=== PATIENT | female | born 1965 | race Caucasian/White ===

== ENCOUNTER 2020-02-19 21:38 | Inpatient (IN) | payer MEDICARE, MEDICAID, SELFPAY ==
[2020-02-19 20:56] VITALS: BMI 20.2; BMI 20.3
--- NOTE | 2020-02-19 20:56 | PCS.PANDOC ---
PANDEMIC DOCUMENTATION INITIATED: Date: 02/19/20 Time: 20:51
[2020-02-19 21:00] VITALS: BP 122/65; PULSE 74; RESP 18; TEMP 37.2; O2SAT 97
[2020-02-19 21:17] VITALS: PULSE 79
--- NOTE | 2020-02-19 21:44 | HP.PCM_ITS ---
Problem List (1) Pulmonary embolism Status: Acute (2) COPD (chronic obstructive pulmonary disease) Status: Acute History of Present Illness Date of Admission: 02/19/20 Chief Complaint: chest pain The patient is a 54 year old F 54-year-old female with a significant past medical history of HIV (undetectable viral load, CD count normally low); DVT, chronic COPD, depression, anxiety who presented to [facility] ED with chest pain that started a day before presentation. The chest pain is located on her left chest. The chest pain is persistent. She described chest pain as sharp and achy. She rated chest pain as of intensity 8 out of 10. The chest pain increased with taking a deep breath. She was given morphine at the outside hospital ED that did not really help her. She denies any ameliorating factors to the chest pain. Associated for symptoms is dyspnea, fatigue, nausea, and vomiting. She reports left leg pain for about 4 days.Reportedly had back surgery in December 2019. Patient's mother had pulmonary embolism. Patient was transferred from [facility] ED to our hospital. Past Medical History Medical History: Medical History (Last Reviewed 02/19/20 @ 23:[address] Deacon Hernández MD) HIV (human immunodeficiency virus infection) B20 Allergies cefdinir Adverse Reaction (Severe, Verified 02/19/20 21:13) Hives codeine Adverse Reaction (Severe, Verified 02/19/20 21:13) Hives doxycycline Adverse Reaction (Severe, Verified 02/19/20 21:13) Hives ketorolac [From Toradol] Adverse Reaction (Severe, Verified 02/19/20 21:13) Hives Home Medications: Ambulatory Orders Medication Instructions Recorded Abacavir/Dolutegravir/Lamivudi 1 ea PO DAILY 02/19/20 [Triumeq Tablet] Lamotrigine [Lamictal] 75 mg PO BID 02/19/20 Oxycodone HCl/Acetaminophen 1 tab PO PRN PRN 02/19/20 [Percocet 10-325 mg Tablet] Quetiapine Fumarate [Seroquel] 100 mg PO DAILY 02/19/20 Ropinirole HCl [Requip] 1 mg PO BID 02/19/20 Sertraline HCl [Zoloft] 200 mg PO DAILY 02/19/20 traZODone [Desyrel] 150 mg PO QHS 02/19/20 Surgical History: hysterectomy, - - ; back surgery for herniated disc; eight surgeries on right shoulder; bilateral hip replacements; left knee replacement; lymph node dissection on groin Smoking Status: Former smoker - *Family History Maternal History Items: Cancer - Uterine cancer, Dementia, - - Pulmonary embolism Paternal History Items: Cancer - Bladder cancer, - - His father had bladder cancer but he from COVID-19 virus. Review of Systems Constitutional: Denies: Chills, Fever, Weight Change HEENT: Denies: Head Aches, Sinus Congestion, Sinus Drainage Cardiovascular: Reports: Chest Pain. Denies: Palpitations Respiratory: Reports: Cough, Pleuritic Pain, Shortness of Breath, Sputum production. Denies: Shortness of breath at rest Gastrointestinal: Reports: Nausea, Vomiting. Denies: Abdominal Pain Genitourinary: Denies: Dysuria Musculoskeletal: Denies: Joint Pain, Joint Tenderness Skin: Denies: Rash, Wounds Neurological: Denies: Numbness, Tingling, Focal weakness Psychiatric: Denies: Anxiety, Depression, Homicidal Ideations, Suicidal Ideations Hematologic/ Lymphatic: Denies: Easy Bruising, Easy Bleeding VTE Information - Inpt Only VTE Present on Admission: Yes VTE Mechan Device Prophylaxis: None VTE Pharm Prophylaxis ordered?: No Patient Problems: Active and Suspected Problems (Last Updated 02/19/20 @ 22:[address] Deacon Hernández MD) Pulmonary embolism (Acute) COPD (chronic obstructive pulmonary disease) (Acute) - Physical Exam Vitals/I&O's: Vital Signs Temp Pulse Resp BP Pulse Ox 99.0 F 79 18 122/65 H 97 02/19/20 21:00 02/19/20 21:17 02/19/20 21:00 02/19/20 21:00 02/19/20 21:00 Oxygen Delivery Method Room Air General: Alert, Oriented x3, Cooperative HEENT: Atraumatic, PERRLA, EOMI, Normocephalic Neck: Supple, No JVD, Negative Carotid Bruits Lungs: Wheezes Cardiovascular: Regular rate, Normal S1, Normal S2, No murmurs Abdomen: Bowel Sounds Present, Soft, Non Tender Extremities: No edema, Capillary Refill Less than 3 Seconds Skin: No rashes, No breakdown Musculoskeletal: No Tenderness to Palpation of Joints or Extremities Neurological: Cranial nerves II-XII grossly intact Psych/Mental Status: Normal Affect, Appropriate Assessment/Plan All Active Problems (Last Updated 02/19/20 @ 22:[address] Deacon Hernández MD) Pulmonary embolism (Acute) COPD (chronic obstructive pulmonary disease) (Acute) The patient is a 54 year old F 54-year-old female with a significant past medical history of HIV (undetectable viral load, CD count normally low); DVT, chronic COPD, depression, anxiety who presented to [facility] ED with chest pain; shortness of breath; productive cough;dyspnea, fatigue, nausea, and vomiting and found to have a PE on CTPA. Acute pulmonary embolism CTPA at outside hospital with nonspecific reticular changes, 1 cm filling defect distal main pulmonary artery, other events clot suspected, no distal PE noted. Patient for history of DVT in left leg and DVT in left after PICC insertion. PT/INR 10.1/1.0 at outside hospital. PTT 24.5 at outside hospital. Negative Covid PCR and antigen at outside hospital.. Heparin drip without bolus at outside hospital. Heparin drip continued. Escalate home as needed oxycodone. Antiemetics and bowel protocol in place. Echocardiogram ordered. COPD exacerbation With diffuse wheezing and shortness of breath. Scheduled DuoNeb Albuterol as needed Solu-Medrol 25 mg x 1 and then daily. Oxygen as needed Monitor BMP and CBC HIV On Triumeq; continued Depression/anxiety/mood disorder Lamictal; Seroquel; Zoloft and trazodone continued Restless legs Requip continued DVT prophylaxis: Not indicated since patient is on heparin drip for acute PE. Inpatient E&M: 42887 Init Hosp L3
--- NOTE | 2020-02-19 21:57 | ECHOD_ITS ---
Reason For Study: Emboli, PE Procedure This was a 2D Doppler, Color Flow transthoracic echocardiogram. The exam was of adequate technical quality. Exam performed portable in patient room. Left Ventricle Normal LV size. Left ventricular systolic function is normal. The estimated ejection fraction is 70 %. Transmitral doppler flow suggestive of impaired relaxation of left ventricle. No regional wall motion abnormalities noted. Right Ventricle Normal RV size. Normal systolic function. Atria Normal left atrium. Normal right atrium. Prominent eustachian valve. Normal atrial septum. Mitral Valve There is no mitral annular calcification. Normal mitral valve. Trivial mitral valve insufficiency. Tricuspid Valve Normal tricuspid valve. Trivial tricuspid valve insufficiency. Aortic Valve Trisinus/trileaflet aortic valve. Mild focal aortic valve thickening. Pulmonic Valve The pulmonic valve is not well visualized. Great Vessels Normal sized aortic root. Pericardium/Pleural No pericardial effusion. MMode/2D Measurements & Calculations LVIDd: 5.4 cm IVSd: 1.2 cm Ao root diam: 2.5 cm LVIDs: 2.5 cm LVPWd: 0.85 cm RVDd: 3.9 cm FS: 54.2 % LAV(MOD-bp): 38.3 ml LVAd ap4: 22.0 cm2 SV(MOD-sp4): 41.7 ml LAV(MOD-bp) Indexed: 24.0 ml/m2 EDV(MOD-sp4): 56.8 ml LAV(MOD-sp2): 41.9 ml EDV(sp4-el): 58.6 ml LAV(MOD-sp4): 33.1 ml LVAs ap4: 10.0 cm2 ESV(MOD-sp4): 15.1 ml ESV(sp4-el): 15.5 ml EF(MOD-sp4): 73.4 % EF(sp4-el): 73.6 % SV(sp4-el): 43.2 ml LA A4 area: 13.7 cm2 LA dimension(2D): 3.3 cm RA A4 area: 12.9 cm2 Doppler Measurements & Calculations MV E max konrad: 108.7 cm/sec Lat Peak E' Konrad: 7.5 cm/sec Med Peak E' Konrad: 8.7 cm/sec MV A max konrad: 117.8 cm/sec E/E' lat: 14.4 E/E' med: 12.5 MV E/A: 0.92 Ao V2 max: 188.3 cm/sec LV V1 max: 152.7 cm/sec PA V2 max: 126.8 cm/sec Ao max P.2 mmHg LV V1 max P.3 mmHg Ao V2 mean: 127.2 cm/sec Ao mean P.2 mmHg Ao V2 VTI: 38.9 cm Interpretation Summary Left ventricular systolic function is normal. The estimated ejection fraction is 70 %. Prominent eustachian valve. Trivial mitral valve insufficiency. Trivial tricuspid valve insufficiency. Mild focal aortic valve thickening. Ordering Physician: Deacon Hernández Performed By: Charity Asher, NARAYAN, RVT
[2020-02-19] MEDS: oxyCODONE 5 MG Tablet 10 MG PO (22:24)
[2020-02-19 22:51] VITALS: O2SAT 96
[2020-02-19] MEDS: HEPARIN/D5w 25,000 UNITS 25,000 UNITS/250 ML IV.SOLN. 15.3 UNITS IV (22:57)
[2020-02-19] MEDS: traZODone 100 MG Tablet 150 MG PO (23:00)
[2020-02-19] MEDS: guaiFENesin 1,200 MG Tablet 1200 MG PO (23:01)
[2020-02-19] MEDS: Pramipexole Di-HCl 0.5 MG Tablet PO (23:01)
[2020-02-19] MEDS: QUEtiapine 100 MG Tablet PO (23:03)
[2020-02-19] MEDS: MethylPREDNISolone 125 MG/2 ML Vial IV (23:07)
[2020-02-19 23:17] VITALS: PULSE 87
[2020-02-19] MEDS: Heparin Injection (Vial) 5,000 UNIT/ML VIAL IV (23:25)
[2020-02-20] VITALS (10 sets, daily range): BP systolic 106–118; BP diastolic 60–72; PULSE 60–95; RESP 16–20; TEMP 36.6–37.3; O2SAT 92–99
[2020-02-20] MEDS: oxyCODONE 5 MG Tablet 10 MG PO ×4 (05:21→19:53)
[2020-02-20] MEDS: 0.9% Saline Lock 10 ML Syringe IV ×2 (05:22→14:14)
[2020-02-20 05:30] LABS: Absolute Lymphocyte Count 0.88 X10^3/uL (0.83-4.51); Absolute Neutrophil Count 4.9 X10^3/uL (2.0-7.7); Hemoglobin 11.1 g/dL (12.0-15.0); Lymphocyte # 0.88 X10^3/ul (4.0); Mean Corp Hgb Conc 31.7 g/dL (32-36); Mean Corpuscular Hgb 28.2 pg (27.0-32.0); Mean Corpuscular Volume 89.1 fL (81-99); Monocyte# 0.08 X10^3/uL; Monocyte% 1.4 % (0-10); NRBC Flagged by Analyzer 0 % (0-5); Neutrophil # 4.87 X10^3/uL (2.7-7.7); Neutrophil % 83.1 % (47-70); Platelet Count 274 K/mm3 (150-450); RBC Distribution Width CV 15.9 % (11.6-14.6); RBC Distribution Width SD 52.7 fl (35.1-43.9); Red Blood Count 3.93 M/mm3 (4.2-5.4); White Blood Count 5.9 K/mm3 (4.4-11.0)
[2020-02-20 05:49] LABS: Anion Gap 6 (5-15); BUN 15 mg/dL (7-18); BUN/Creat Ratio 18.7 RATIO (10-20); Calcium,Total 8.9 mg/dL (8.5-10.1); Chloride 108 mmol/L (98-107); EST Glomerular Filtration Rate 78 mL/min (>60); Est Glom Filt Rate - Afr Amer 95 mL/min (>60); Estimated Creatinine Clearance 68.43 ml/min; Glucose 203 mg/dL (74-106); Sodium Level 139 mmol/L (136-145)
[2020-02-20 06:03] LABS: Partial Thromboplast Time > 250.0 Seconds (24.1-36.2)
[2020-02-20] MEDS: Ipratropium/Albuterol Sulfate 3 ML AMPUL.NEB INHALATION ×2 (07:27→15:16)
[2020-02-20] MEDS: Pramipexole Di-HCl 0.5 MG Tablet PO ×2 (09:43→21:39)
[2020-02-20] MEDS: lamoTRIgine 25 MG Tablet 75 MG PO ×2 (09:43→21:39)
[2020-02-20] MEDS: Sertraline 100 MG Tablet 200 MG PO (09:43)
[2020-02-20] MEDS: guaiFENesin 1,200 MG Tablet 1200 MG PO ×2 (09:43→21:39)
[2020-02-20] MEDS: ABACAVIR PO (09:44)
[2020-02-20] MEDS: LAMIVUDI PO (09:44)
[2020-02-20] MEDS: DOLUTEGRAVIR PO (09:44)
--- NOTE | 2020-02-20 11:04 | CASEMGMT ---
MAE WINTERS assessment: Face to Face with patient for initial transition planning/care coordination assessment. MAE WINTERS introduced self and role at [facility], pt voices understanding and consents to assessment at this time. Pt is sitting up in bed in no distress at this time. Pt is on room air at this time. Pt is A/Ox4 at this time and answers all questions appropriately at this time. Care providers, pharmacy, and demographics verified/updated at this time. Presentation: Pt is a direct admit from [place] ED for PE Admitting dx: PE PCP: Sanaz Monreal Specialists: [facility]; santino Atkinson in [place]; Tammy, psych; Camille, NEERAJ Preferred Pharmacy: [facility] [place] Insurance: [facility] Prescription Benefit: [facility] Living Will/HPOA: Pt states has LW/HPOA and is aware that they are not on file at [facility] at this time. Pt states her daughter, Cecilia Antony, is HPOA. LNOK: Cecilia Antony, daughter/HPOA Living Arrangements: Pt states lives alone in 1 story apartment and states no concerns at home at this time. Pt states is independent with ADL's. Transportation: Pt states normally rides the bus and states no transportation concerns at this time. DME/HHC: Pt states has a walker that she uses occasionally and states no need for any further DME. Pt states no hx of HHC but has been to [facility] in the past. Pt states no concerns with going home at time of discharge. Pt states is on disability. Pt states quit smoking cigarettes about 3-4months ago and states does not drink ETOH. Pt states no further concerns/needs at this time. CM to follow for anti-coagulant, home oxygen need and any further discharge planning/needs. Advised pt to ask for CM if any further questions/concerns/needs arise, voices understanding. Pt Goal: Home Plan: [place] [facility] [place]
--- NOTE | 2020-02-20 14:46 | DCINST_ITS ---
- Discharge Diagnoses Current Active Problems: Current Active and Chronic Problems (Last Reviewed 02/19/20 @ 23:[address] Deacon Hernández MD) Pulmonary embolism (Acute) COPD (chronic obstructive pulmonary disease) (Acute) You will use the following diet at home:: No restrictions Your food should be the consistency of: Regular Your liquids should be the consistency of: Regular/Thin Discharge Activity: Return to Normal Activity Weight Bearing Status: Full weight bearing Additional Instructions: Resume your inhalers when you return home Allergies/Adverse Reactions: Allergies cefdinir Adverse Reaction (Severe, Verified 02/19/20 21:13) Hives codeine Adverse Reaction (Severe, Verified 02/19/20 21:13) Hives doxycycline Adverse Reaction (Severe, Verified 02/19/20 21:13) Hives ketorolac [From Toradol] Adverse Reaction (Severe, Verified 02/19/20 21:13) Hives Medications to take at Discharge Abacavir/Dolutegravir/Lamivudi [Triumeq 600-50-300 mg Tablet] 1 ea PO DAILY 02/19/20 Lamotrigine [Lamictal] 75 mg PO BID 02/19/20 Oxycodone HCl/Acetaminophen [Percocet 10-325 mg Tablet] 1 tab PO PRN PRN 02/19/20 Quetiapine Fumarate [Seroquel] 100 mg PO DAILY 02/19/20 Ropinirole HCl [Requip] 1 mg PO BID 02/19/20 Sertraline HCl [Zoloft] 200 mg PO DAILY 02/19/20 traZODone [Desyrel] 150 mg PO QHS 02/19/20 Apixaban [Eliquis] 5 mg PO UD #1 tab.ds.pk 02/20/20 The following prescriptions were given: Apixaban [Eliquis] 5 mg PO UD #1 tab.ds.pk Primary Care Physician: MARTINA OSMAN [Other] Please follow up with your Primary Care Physician in: in 1-2 weeks Test Results: Test results from this visit will be discussed in further detail at your follow- up appointment, if applicable.
[2020-02-20] MEDS: APIXABAN 5 MG TABLET 10 MG PO (16:17)
[2020-02-20] MEDS: QUEtiapine 100 MG Tablet PO (21:39)
[2020-02-20] MEDS: traZODone 100 MG Tablet 150 MG PO (21:40)
--- NOTE | 2020-02-23 17:59 | DS.PCM_ITS ---
Discharge Date and Diagnosis - Problem List Patient Problems: Active and Suspected Problems (Last Reviewed 02/19/20 @ 23:[address] Deacon Hernández MD) Pulmonary embolism (Acute) COPD (chronic obstructive pulmonary disease) (Acute) Date of Admission: 02/19/20 Date of Discharge: 02/20/20 - Primary Discharge Diagnosis Acute Problems: Active Problems (Last Reviewed 02/19/20 @ 23:[address] Deacon Hernández MD) #1 acute pulmonary embolism (Acute) #2 chronic obstructive pulmonary disease-no exacerbation #3 chronic depression #4 HIV positivity-chronic Hospital Course and Treatment Operations: None Procedures: 2-D Echocardiogram Summary of Care Provided: The patient is a 54 year old F was admitted directly to PCU at [facility] as a transfer from an outside hospital where she had gone to the emergency room for evaluation of chest discomfort. Work-up at that hospital included a CTA scan which showed evidence of pulmonary emboli, due to bed availability, patient was transferred to our hospital for further treatment, she was admitted on a heparin drip and initially when she was admitted she was felt to have had an exacerbation of COPD-this examiner did not feel that the patient actually had an exacerbation of COPD. Patient was transitioned to oral medication for treatment of the PE, she did not require any supplemental oxygen during her hospital stay and on 02/20/2020, she was felt stable for discharge home. On 02/20/2020, patient was seen and examined: On examination she appeared in good health and spirits, she does not appear to be in any distress. Vital signs as documented. Skin warm and dry and without overt rashes. Neck without JVD, thyroid appears normal, trachea is midline, neck is supple. Lungs-scattered expiratory wheezes on the right, normal air movement was noted. Heart exam notable for regular rhythm, normal sounds and absence of murmurs, rubs or gallops. Abdomen unremarkable and without evidence of organomegaly, masses, or abdominal aortic enlargement, bowel sounds are present in all 4 quadrants, no abdominal tenderness was noted. Extremities nonedematous, no cyanosis was noted, no clubbing was noted. Neuro: Cranial nerves II through XII are grossly intact, no focal motor deficits were noted, sensation to light touch and pinprick is intact, motor exam 5/5 throughout. Psych: Patient is alert and oriented x3, she does not appear anxious or depressed, she does not appear agitated. Patient was discharged home in stable condition on 02/20/2020. Patient Problems: Active and Suspected Problems (Last Reviewed 02/19/20 @ 23:[address] Deacon Hernández MD) Pulmonary embolism (Acute) COPD (chronic obstructive pulmonary disease) (Acute) - Physical Exam Vitals/I&O's: Vital Signs Temp Pulse Resp BP Pulse Ox 99.2 F H 95 18 118/72 98 02/20/20 20:20 02/20/20 20:20 02/20/20 20:20 02/20/20 20:20 02/20/20 20:20 Oxygen Delivery Method Room Air Weight: 55.2 kg Body Mass Index (BMI) 20.2 Discharge Activity: Return to Normal Activity Weight Bearing Status: Full weight bearing Home Medications: Medications to take at Discharge Abacavir/Dolutegravir/Lamivudi [Triumeq 600-50-300 mg Tablet] 1 ea PO DAILY 02/19/20 Lamotrigine [Lamictal] 75 mg PO BID 02/19/20 Oxycodone HCl/Acetaminophen [Percocet 10-325 mg Tablet] 1 tab PO PRN PRN 02/19/20 Quetiapine Fumarate [Seroquel] 100 mg PO DAILY 02/19/20 Ropinirole HCl [Requip] 1 mg PO BID 02/19/20 Sertraline HCl [Zoloft] 200 mg PO DAILY 02/19/20 traZODone [Desyrel] 150 mg PO QHS 02/19/20 Apixaban [Eliquis] 5 mg PO UD #1 tab.ds.pk 02/20/20 Following Prescriptions Were Given to Patient: Apixaban [Eliquis] 5 mg PO UD #1 tab.ds.pk Primary Care Physician: MARTINA OSMAN [Other] Please follow up with your Primary Care Physician in: in 1-2 weeks Please Follow Up With: kieran Disposition: Home Minutes spent on discharge:: 31 Patient Condition:: Stable Medical Necessity - Tobacco Use Smoking Status: Former smoker Meaningful Use Info Meaningful Use Diagnoses (Choose all that apply): VTE - VTE Anticoag overlap given w/in hospital stay or rx'd at la?: No Pt receive overlap for 5 days?: No Reason overlap not ordered, prescribed, or given for 5 days: Treatment Not Indicated Inpatient E&M: 47848 Disch Hosp
== END 2020-02-20 23:45 | disposition home or self-care (01) | DRG 176 ==
PROVIDERS: Admitting Provider Hospitalist; Visit Provider Internal Medicine
DX: I26.99 Other pulmonary embolism without acute cor pulmonale (principal); J44.9 Chronic obstructive pulmonary disease, unspecified; Z21 Asymptomatic human immunodeficiency virus [HIV] infection status; Z20.828 Contact with and (suspected) exposure to other viral communicable diseases; G25.81 Restless legs syndrome; M79.605 Pain in left leg; F32.9 Major depressive disorder, single episode, unspecified; F41.9 Anxiety disorder, unspecified; Z79.899 Other long term (current) drug therapy; Z86.718 Personal history of other venous thrombosis and embolism; Z87.891 Personal history of nicotine dependence; Z96.652 Presence of left artificial knee joint; Z96.643 Presence of artificial hip joint, bilateral
CPT/HCPCS: 36415; 80048; 85025; 85730; 93306; 94640; 97802; 99406; A4216

== ENCOUNTER 2021-06-29 00:37 | Emergency (ER) | payer MEDICARE, MEDICAID, SELFPAY ==
[2021-06-29 00:39] VITALS: BP 156/80; PULSE 74; RESP 16; TEMP 37; O2SAT 98; BMI 18.8
[2021-06-29 00:55] LABS: Bacteria 0 SEEN /hpf (None Seen); Mucous, Urine 0 SEEN /hpf (<or=2+)
[2021-06-29 00:57] LABS: Glucose, Dipstick Normal (Normal); Ketone-Dipstick Negative (Negative); Leukocyte Esterase-Dipstick 100 /ul (Negative); Nitrite-Dipstick Negative (Negative); Occult Blood-Urine Negative /ul (Negative); Protein-Dipstick Negative (Negative); Specific Gravity, Urine 1.015 (1.002-1.030); Urine Bilirubin Dipstick Negative (Negative); Urine Urobilinogen Normal (Normal)
[2021-06-29 00:58] LABS: Color, Urine Yellow (Yellow); Urine Clarity Sl Cloudy (Clear)
[2021-06-29 01:04] LABS: White Blood Cells 5-10 SEEN /hpf (0-5)
[2021-06-29 01:05] LABS: Amorphous Sediment 2+; Red Blood Cells-Urine 0-5 SEEN /hpf (0-5); Squamous Epithelial Cells - UA 0-5 SEEN /hpf (5-10)
--- NOTE | 2021-06-29 01:15 | CT_ITS ---
STUDY: CT ABDOMEN AND PELVIS WITH CONTRAST REASON FOR EXAM: Female, 55 years old. abdominal pain RADIATION DOSAGE (If Supplied By Facility): CTDIvol = ( 16.17 ) mGy, DLP = ( 588.23 ) mGycm TECHNIQUE: Transaxial images were obtained from the dome of the diaphragm to the symphysis pubis without oral contrast. IV 100mL Isovue-300 was administered. Sagittal and coronal images were reconstructed. Individualized dose optimization techniques were used for this CT. COMPARISON: None. FINDINGS: Linear scars versus plate like atelectasis in the lung bases. Calcified granuloma in the right lower lobe. An approximately 0.5 cm groundglass nodule in the left lower lobe, image #12. Gallbladder not seen and likely removed. Moderate to severe intra and extrahepatic biliary dilatation. Common bile duct measures up to 1.6 cm in diameter. Also, mild pancreatic duct dilatation measuring up to 0.4 cm. Unremarkable adrenals and spleen. Mild bilateral hydronephrosis. Subcentimeter likely simple cyst in the lateral cortex of the left kidney. No CT evidence of acute appendicitis. Bowel loops nonobstructed. No free air or free fluid. No adenopathy. Vascular calcification. No abdominal aortic aneurysm. Sections through the pelvis demonstrate evidence of prior hysterectomy. Evaluation of the urinary bladder is markedly limited due to severe beam hardening and streak artifacts caused by the bilateral hip prosthesis. Status post T11-L1 vertebroplasty. CT/Abdomen/Pelvis W IV Cont ONLY IMPRESSION: An approximately 0.5 cm groundglass nodule in the left lower lobe. Follow-up CT scan of the chest in 6 months to be obtained. Moderate to severe intra and extrahepatic biliary dilatation. This is more than usual expected for cholecystectomy related biliary dilatation. Also, mild pancreatic ductal dilatation. Therefore, MRI/MRCP may be obtained for further evaluation. Mild bilateral hydronephrosis. No free air or free fluid. No evidence of bowel obstruction.. Electronically Signed: Grant Iverson MD at 2:42 EDT ,
--- NOTE | 2021-06-29 01:16 | EDS_ITS ---
HPI HPI - Female History of Present Illness Chief Complaint: Complaint Narrative Narrative: 55-year-old female with history of HIV, recurrent UTI, C. difficile colitis presenting with abdominal pain. Initially thought she had a UTI. She has not been on antibiotics for the UTI. She is currently on vancomycin oral for C. difficile colitis which is provided her by her infectious disease physician in [place]. She states he is out [place] for the weekend and noted she is having worsening pain. She states she had a fever of 101.2 earlier today. She also admits to some nausea and vomiting. She took Tylenol and this resolved. She still having diarrhea but denies black or bloody stools. She has history of PE and is anticoagulated on Eliquis. [facility] Medical History C. difficile colitis HIV (human immunodeficiency virus infection) VRE (vancomycin resistant enterococcus) culture positive Home Medications Ropinirole Hcl [Requip] 1 mg PO BID 02/19/20 [History Last Taken 02/19/20 09:00] lamotrigine 150 mg PO BID 02/19/20 [History Last Taken 02/19/20 09:00] quetiapine 300 mg PO DAILY 02/19/20 [History Last Taken 02/18/20 21:00] trazodone 300 mg PO QHS 02/19/20 [History Last Taken 02/18/20 21:00] apixaban 5 mg PO UD #1 tab.ds.pk 02/20/20 [Rx Last Taken Unknown] Allergy/AdvReac Type Severity Reaction Status Date / Time cefdinir AdvReac Severe Hives Verified 06/29/21 00:39 codeine AdvReac Severe Hives Verified 06/29/21 00:39 doxycycline AdvReac Severe Hives Verified 06/29/21 00:39 ketorolac [From Toradol] AdvReac Severe Hives Verified 06/29/21 00:39 Surgical History S/P hip replacement Status post right knee replacement Social History Smoking Status: Current some day smoker tobacco type: cigarettes ROS ROS ED Constitutional Constitutional ED: Reports fever(s); Denies chills Eyes Eyes: Denies blurry vision or diplopia ENT ENT ED: Denies rhinorrhea or sore throat Cardiovascular Cardiovascular: Denies chest pain or palpitations Respiratory/Chest Respiratory/Chest: Denies cough, dyspnea or stridor Gastrointestinal Gastrointestinal: Reports abdominal pain, nausea and vomiting Genitourinary Genitourinary ED: Reports dysuria and urinary frequency Musculoskeletal Musculoskeletal: Denies arthralgias or myalgias Integumentary Denies Abrasions or rash Neurologic Neurologic: Denies headache(s), paresthesias or weakness Psychiatric Psychiatric: Denies anxiety or depression EXAM Physical Exam Const Vital Signs: 06/29/21 00:39 06/29/21 03:33 Temperature 98.6 F Temperature Source Temporal Pulse Rate 74 75 Respiratory Rate 16 18 Blood Pressure 156/80 H 137/75 H Blood Pressure Mean 105 Pulse Ox 98 97 Oxygen Delivery Method Room Air Positive well nourished General Appearance ED: NAD; Negative for pallor HEENT Reports moist mucous membranes Negative for trauma Eyes PERRL and EOMs intact bilaterally Resp normal respiratory effort and clear to auscultation bilaterally Cardio regular rate and regular rhythm GI normal to inspection, nondistended, normoactive bowel sounds no CVA tenderness Neuro oriented x3 Sensorium / Orientation: alert Psych mental status grossly normal Skin no rashes or lesions noted General Skin Exam: Negative for jaundice or pallor MDM MDM MDM Narrative Medical decision making narrative: Patient initially complaining of dysuria however her urinalysis is negative for infection. There is no occult blood. Patient is not currently on antibiotics for UTI. She is taking oral vancomycin for C. difficile colitis. She also has a history of HIV for which she sees infectious disease in [place]. I did obtain blood work and her CBC and CMP are unremarkable. Urinalysis again is negative for infection. I obtained a CT of the abdomen pelvis with IV contrast which shows intra and extrahepatic duct dilatation however on review of the medical record this is not new. There is a small 0.5 cm groundglass opacity in the left lower lobe which was discussed with the patient. She will need follow-up imaging in 6 months. There is also small bilateral hydronephrosis without other findings. Given her urinalysis is negative and she is freely voiding without any signs of infection I believe she safe for outpatient follow-up for this. She states that she can follow-up in [place]. All questions were answered and patient discharged home in stable condition. Impression: 1. Abdominal pain 2. History of HIV 3. Dysuria unknown cause 4. Diarrhea 5. History of C. difficile colitis 6. 0.5 cm pulmonary nodule left lower lobe 7. Mild bilateral hydronephrosis 8. 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 Labs: Laboratory Results - last 24 hr 06/29/21 06/29/21 06/29/21 00:50 01:45 01:45 WBC 8.3 RBC 3.95 L Hgb 11.5 L Hct 35.8 L MCV 90.6 MCH 29.1 MCHC 32.1 RDW Std Deviation 52.1 H RDW Coeff of Davey 15.7 H Plt Count 255 MPV 9.9 Immature Gran % (Auto) 0.400 Neut % (Auto) 54.8 Lymph % (Auto) 30.6 [place] % (Auto) 10.7 H Eos % (Auto) 2.9 Baso % (Auto) 0.6 Absolute Neuts (auto) 4.5 Absolute Lymphs (auto) 2.53 Nucleated RBC % 0 Sodium 141 Potassium 3.9 Chloride 111 H Carbon Dioxide 26.0 Anion Gap 4 L BUN 13 Creatinine 0.80 Estim Creat Clear Calc 62.71 Est GFR (MDRD) Af Amer 95 Est GFR (MDRD) Non-Af 79 BUN/Creatinine Ratio 16.3 Glucose 89 Calcium 8.5 Total Bilirubin 0.30 AST 19 ALT 27 Alkaline Phosphatase 90 Total Protein 6.7 Albumin 3.4 Globulin 3.3 Albumin/Globulin Ratio 1.0 Lipase 84 Urine Color Yellow Urine Clarity Sl Cloudy Urine pH 8.0 Ur Specific [place] 1.015 Urine Protein Negative Urine Glucose (UA) Normal Urine Ketones Negative Urine Occult Blood Negative Urine Nitrite Negative Urine Bilirubin Negative Urine Urobilinogen Normal Ur Leukocyte Esterase 100 H Urine RBC 0-5 SEEN Urine WBC 5-10 SEEN Ur Squamous Epith Cells 0-5 SEEN Amorphous Sediment 2+ Urine Bacteria 0 SEEN Urine Mucus 0 SEEN Radiography Diagnostic Testing: Clinical Impression(s) from Imaging Studies Abdomen/Pelvis CT 06/29/21 01:15 IMPRESSION: An approximately 0.5 cm groundglass nodule in the left lower lobe. Follow-up CT scan of the chest in 6 months to be obtained. Moderate to severe intra and extrahepatic biliary dilatation. This is more than usual expected for cholecystectomy related biliary dilatation. Also, mild pancreatic ductal dilatation. Therefore, MRI/MRCP may be obtained for further evaluation. Mild bilateral hydronephrosis. No free air or free fluid. No evidence of bowel obstruction.. Electronically Signed: Grant Iverson MD at 2:42 EDT , Discharge Plan Triage Chief Complaint: Complaint ED Provider: Isreal Bond Dx/Rx/DC Orders Clinical Impression: HIV (human immunodeficiency virus infection), C. difficile colitis Instructions: ED Abdominal Pain Unkn Cause Fem, C diff Prescriptions: No Action lamotrigine 25 MG tablet 150 mg PO BID RF: 0 trazodone 100 MG tablet 300 mg PO QHS RF: 0 quetiapine 100 MG tablet 300 mg PO DAILY RF: 0 Ropinirole Hcl [Requip] 1 MG tablet 1 mg PO BID RF: 0 apixaban 5 MG tablets,dose pack 5 mg PO UD Qty: 1 RF: 0 Primary Care Provider: Care Physician,No Primary Referrals: Care Physician,No Primary [Primary Care Provider] - Disposition Disposition: Home, Self Care Discharge Date/Time: 06/29/21 03:35
[2021-06-29 01:52] LABS: Absolute Lymphocyte Count 2.53 X10^3/uL (0.83-4.51); Absolute Neutrophil Count 4.5 X10^3/uL (2.0-7.7); Basophil# 0.05 X10^3/uL; Basophil% 0.6 % (0-1); Eosinophil# 0.24 X10^3/uL; Eosinophils% 2.9 % (0-5); Hematocrit 35.8 % (37-47); Hemoglobin 11.5 g/dL (12.0-15.0); Lymphocyte # 2.53 X10^3/ul (0.83-4.51); Lymphocyte % 30.6 % (19-41); Mean Corp Hgb Conc 32.1 g/dL (32-36); Mean Corpuscular Hgb 29.1 pg (27.0-32.0); Mean Corpuscular Volume 90.6 fL (81-99); Mean Platelet Vol. 9.9 fl (6.2-12.0); Monocyte# 0.88 X10^3/uL; Monocyte% 10.7 % (0-10); NRBC Flagged by Analyzer 0 % (0-5); Neutrophil # 4.53 X10^3/uL (2.7-7.7); Neutrophil % 54.8 % (47-70); Platelet Count 255 K/mm3 (150-450); RBC Distribution Width CV 15.7 % (11.6-14.6); RBC Distribution Width SD 52.1 fl (35.1-43.9); Red Blood Count 3.95 M/mm3 (4.2-5.4); White Blood Count 8.3 K/mm3 (4.4-11.0)
[2021-06-29] MEDS: Ondansetron 4 MG/2 ML Vial IV (01:52)
[2021-06-29] MEDS: Morphine 4 MG/ML Syringe IV (01:52)
[2021-06-29] MEDS: 0.9% Normal Saline 1,000 ML 1000 ML IV (01:52)
[2021-06-29 02:10] LABS: AST(SGOT) 19 U/L (15-37); Alanine Aminotransfer ALT/SGPT 27 U/L (13-56); Albumin, Serum 3.4 g/dL (3.2-5.0); Alkaline Phosphatase 90 U/L (45-117); Anion Gap 4 (5-15); BUN 13 mg/dL (7-18); BUN/Creat Ratio 16.3 RATIO (10-20); Calcium,Total 8.5 mg/dL (8.5-10.1); Chloride 111 mmol/L (98-107); EST Glomerular Filtration Rate 79 mL/min (>60); Est Glom Filt Rate - Afr Amer 95 mL/min (>60); Estimated Creatinine Clearance 62.71 ml/min; Globulin 3.3 g/dL (2.2-4.2); Glucose 89 mg/dL (74-106); Lipase 84 U/L (73-393); Potassium 3.9 mmol/L (3.5-5.1); Protein, Total 6.7 g/dL (6.4-8.2); Sodium Level 141 mmol/L (136-145)
[2021-06-29 03:33] VITALS: BP 137/75; PULSE 75; RESP 18; O2SAT 97
== END 2021-06-29 03:35 | disposition home or self-care (01) ==
PROVIDERS: Emergency Provider Student in an Organized Health Care Education/Training Program; Visit Provider Student in an Organized Health Care Education/Training Program
DX: A04.72 Enterocolitis due to Clostridium difficile, not specified as recurrent (principal); Z21 Asymptomatic human immunodeficiency virus [HIV] infection status; R10.9 Unspecified abdominal pain; N13.30 Unspecified hydronephrosis; R30.0 Dysuria; R35.0 Frequency of micturition; K83.8 Other specified diseases of biliary tract; F17.210 Nicotine dependence, cigarettes, uncomplicated; Z79.01 Long term (current) use of anticoagulants; Z79.899 Other long term (current) drug therapy; Q44.5 Other congenital malformations of bile ducts
CPT/HCPCS: 74177; 80053; 81001; 83690; 85025; 96361; 96374; 96375; 99283; J7030; Q9967; A4216; J2405